=== PATIENT | male | born 1985 | race African-American/Black ===

== ENCOUNTER 2021-12-29 19:55 | Emergency (ER) | payer MEDICARE, MEDICAID ==
[~2021-12-29] VITALS: Ht 182.9 cm; Wt 108.8 kg
[~2021-12-29 19:55] MED LIST: RISPERDAL2 MG OR; TRILEPTAL300 MG/5 M OR
[2021-12-29] MEDS ORDERED: KEPPRA XR500 MG PO (20:03)
[2021-12-29] MEDS ORDERED: LIPITOR20 M1 PO (20:04)
[2021-12-29 20:30] LABS: HEMATOCRIT 41.5 % (39.0-50.0); HEMOGLOBIN 13.8 g/dl (14.0-18.0); MEAN CELL VOLUME 90.2 fL CALC (80.0-100.0); MEAN CORPUSCULAR HGB CONC 33.3 g/dL CAL (32.0-36.0); NEUT# 1.99 thou/uL (1.82-7.42); RED BLOOD COUNT 4.6 mill/uL (4.70-6.10); RED CELL DISTRI WIDTH 13.4 % (11.5-15.5)
[2021-12-29 22:30] VITALS: BP 122/59
== END 2021-12-29 22:30 | disposition home or self-care (01) ==
LOC: ED 19:55
PROVIDERS: Family Medicine
DX: R50.9 Fever, unspecified (principal); F79 Unspecified intellectual disabilities; E78.5 Hyperlipidemia, unspecified; Z20.822 Contact with and (suspected) exposure to COVID-19